=== PATIENT | male | born 1955 | race African-American/Black ===

== ENCOUNTER 2024-01-14 14:14 | Emergency (ER) | payer OTHER ==
[~2024-01-14] VITALS: Ht 177.8 cm; Wt 86.2 kg
[2024-01-14] MEDS ORDERED: DEXTROSE 50%-WATER 50 ML DISP.SYRIN ONE (14:46)
[2024-01-14] MEDS: IV NS 0.9% 1,000 ML BAG IV ONE (14:54)
[2024-01-14] MEDS: DEXTROSE 50%-WATER 50 ML DISP.SYRIN IVP ONE (14:54)
[2024-01-14 15:22] LABS: BASOPHILS % (AUTO) 0.5 % (0.0-2.0); EOSINOPHILS # (AUTO) 0.2 K/uL (0.0-0.7); EOSINOPHILS % (AUTO) 2.1 % (0.0-6.0); HEMATOCRIT 31 % (39-51); HEMOGLOBIN 9.9 g/dL (13.5-17.5); LYMPHOCYTES % (AUTO) 11.7 % (20.0-44.0); MEAN CORPUSCULAR HEMOGLOBIN 29 PG (26.0-33.0); MEAN CORPUSCULAR HGB CONC 32 g/dl (31.0-36.0); MEAN CORPUSCULAR VOLUME 88 fL (80-96); MONOCYTES # (AUTO) 0.8 K/uL (0.1-1.30); MONOCYTES % (AUTO) 9.8 % (2.0-12.0); NEUTROPHILS # (AUTO) 6.5 K/uL (1.8-8.9); NEUTROPHILS % (AUTO) 75.9 % (43.0-81.0); PLATELET COUNT (AUTO) 236 K/uL (150-450); RED BLOOD CELL COUNT(AUTO) 3.48 MIL/uL (4.5-6.0); RED CELL DISTRIBUTION WIDTH 14.4 % (11.5-15.0); WHITE BLOOD COUNT (AUTO) 8.5 K/uL (4.3-11.0)
[2024-01-14 15:29] LABS: CALCIUM, SERUM 8.7 mg/dL (8.5-10.1); POTASSIUM 3.9 mmol/L (3.5-5.1)
[2024-01-14 15:34] LABS: CREATININE 8.3 mg/dL (0.6-1.3)
[2024-01-14] MEDS ORDERED: DEXTROSE 50%-WATER 50 ML DISP.SYRIN IV PRN (16:30)
[2024-01-14] MEDS ORDERED: MAG HYDROX/AL HYDROX/SIMETH 30 ML UDC PO PRN (16:30)
[2024-01-14] MEDS ORDERED: INSULIN REGULAR, HUMAN 100 UNIT/ML 3 ML VIAL SQ PRN (16:30)
[2024-01-14] MEDS ORDERED: ACETAMINOPHEN 325 MG TABLET PO PRN (16:30)
[2024-01-14] MEDS ORDERED: Z GUARD REMEDY 4 OZ OINT TP PRN (16:30)
[2024-01-14] MEDS ORDERED: ONDANSETRON HCL/PF 4 MG/2 ML VIAL IVP PRN (16:30)
[2024-01-14] MEDS ORDERED: MAGNESIUM HYDROXIDE 30 ML UDC PO PRN (16:30)
[2024-01-14] MEDS ORDERED: BLOOD SUGAR DIAGNOSTIC 1 EACH STRIP IN SCH (17:30)
[2024-01-14 18:05] VITALS: BP 141/81; TEMP 98.9; O2SAT 99
== END 2024-01-14 18:05 | disposition home or self-care (01) ==
LOC: ER 14:20 → TELE1 16:29 → UNDOADMIN 16:29
DX: E16.2 Hypoglycemia, unspecified (principal); I12.0 Hypertensive chronic kidney disease with stage 5 chronic kidney disease or end stage renal disease; N18.6 End stage renal disease
CPT/HCPCS: 36415; 80048-TC; 82962-TC; 85025-TC; J1815

== ENCOUNTER 2024-04-06 11:53 | Inpatient (IN) | payer OTHER ==
[2024-04-06] VITALS (11 sets, daily range): BP systolic 118–153; BP diastolic 57–100; TEMP 98.4–98.9; O2SAT 94–100
[~2024-04-06] VITALS: Ht 175.3 cm; Wt 85.7 kg
[2024-04-06] MEDS ORDERED: SODIUM BICARBONATE SYR 50 MEQ/50 ML DISP.SYRIN ONE (12:12)
[2024-04-06] MEDS ORDERED: CALCIUM CHLORIDE 1,000 MG/10 ML DISP.SYRIN ONE (12:12)
[2024-04-06] MEDS: SODIUM BICARBONATE SYR 50 MEQ/50 ML DISP.SYRIN IV ONE (12:19)
[2024-04-06] MEDS: CALCIUM CHLORIDE 1,000 MG/10 ML DISP.SYRIN IV ONE (12:20)
[2024-04-06 12:52] LABS: CALCIUM, SERUM 7.8 mg/dL (8.5-10.1); CARBON DIOXIDE 13 mmol/L (21-32); CHLORIDE 100 mmol/L (98-107); GLUCOSE 155 mg/dL (74-106); POTASSIUM 5.2 mmol/L (3.5-5.1); SODIUM SERUM 138 mmol/L (136-145)
[2024-04-06 12:55] LABS: INR 1.21 (0.91-1.10); PARTIAL THROMBOPLASTIN TIME 28.7 SEC (24.3-34.3); PROTHROMBIN TIME 12.7 SECS (9.2-11.1)
[2024-04-06 12:59] LABS: CREATININE 15.6 mg/dL (0.6-1.3); UREA NITROGEN, BLOOD 106 mg/dL (7-18)
[2024-04-06 13:03] LABS: BASOPHILS % (AUTO) 0.4 % (0.0-2.0); EOSINOPHILS % (AUTO) 0.1 % (0.0-6.0); HEMATOCRIT 28 % (39-51); LYMPHOCYTES # (AUTO) 0.7 K/uL (0.8-4.8); LYMPHOCYTES % (AUTO) 8.8 % (20.0-44.0); MEAN CORPUSCULAR HEMOGLOBIN 28 PG (26.0-33.0); MEAN CORPUSCULAR HGB CONC 32 g/dl (31.0-36.0); MEAN CORPUSCULAR VOLUME 87 fL (80-96); MONOCYTES # (AUTO) 0.9 K/uL (0.1-1.30); MONOCYTES % (AUTO) 11.6 % (2.0-12.0); NEUTROPHILS % (AUTO) 79.1 % (43.0-81.0); PLATELET COUNT (AUTO) 266 K/uL (150-450); RED BLOOD CELL COUNT(AUTO) 3.27 MIL/uL (4.5-6.0); RED CELL DISTRIBUTION WIDTH 16.3 % (11.5-15.0); WHITE BLOOD COUNT (AUTO) 7.6 K/uL (4.3-11.0)
[2024-04-06 13:05] LABS: ALANINE AMINOTRANSFERASE 349 U/L (12-78); ALBUMIN 2.7 g/dL (3.4-5.0); ALKALINE PHOSPHATASE 122 U/L (46-116); ASPARTATE AMINOTRANSFERASE 534 U/L (15-37); BILIRUBIN,DIRECT 0.4 mg/dL (0.0-0.2); BILIRUBIN,TOTAL 0.9 mg/dL (0.2-1.0)
[2024-04-06 13:44] LABS: NT-PRO BNP > 25000 pg/mL (0-125)
[2024-04-06] MEDS ORDERED: FOLI0.4T6 PO (14:14)
[2024-04-06] MEDS ORDERED: EZET10TA15 PO (14:14)
[2024-04-06] MEDS ORDERED: SEVE800T28 PO (14:14)
[2024-04-06] MEDS ORDERED: LIDO35.4 TP (14:14)
[2024-04-06] MEDS ORDERED: SEMA0.25 SQ (14:14)
[2024-04-06] MEDS ORDERED: METO100T14 PO (14:14)
[2024-04-06] MEDS ORDERED: ASPI-1169 PO (14:14)
[2024-04-06] MEDS ORDERED: INSU100V7 SQ (14:14)
[2024-04-06] MEDS ORDERED: QUET300T2 PO (14:14)
[2024-04-06] MEDS ORDERED: ATOR80TA PO (14:14)
[2024-04-06] MEDS ORDERED: CARB30DR18 EACHEYE (14:14)
[2024-04-06] MEDS ORDERED: ZOLPIDEM TARTRATE 5 MG TABLET PO PRN ×2 (16:00→16:30)
[2024-04-06] MEDS ORDERED: ACETAMINOPHEN 325 MG TABLET PO PRN (16:00)
[2024-04-06] MEDS ORDERED: Z GUARD REMEDY 4 OZ OINT TP PRN ×2 (16:00→16:30)
[2024-04-06] MEDS ORDERED: ONDANSETRON HCL/PF 4 MG/2 ML VIAL IVP PRN (16:00)
[2024-04-06] MEDS ORDERED: METOPROLOL TARTRATE 25 MG TABLET PO SCH (16:00)
[2024-04-06] MEDS ORDERED: QUETIAPINE FUMARATE 100 MG TABLET PO SCH (17:00)
[2024-04-06] MEDS: SEVELAMER CARBONATE 800 MG TABLET PO SCH (17:05)
[2024-04-06] MEDS: QUETIAPINE FUMARATE 100 MG TABLET PO SCH (17:05)
[2024-04-06] MEDS ORDERED: SEVELAMER CARBONATE 800 MG TABLET PO SCH (18:00)
[2024-04-06] MEDS: ASPIRIN 81 MG TAB.CHEW PO ONE (20:45)
[2024-04-06] MEDS: METOPROLOL TARTRATE 25 MG TABLET PO SCH (21:15)
[2024-04-06] MEDS: ATORVASTATIN 40 MG TABLET PO SCH (21:16)
[2024-04-06] MEDS ORDERED: INSULIN GLARGINE, 100 UNIT/ML CARTRIDGE SQ SCH (22:00)
[2024-04-06] MEDS ORDERED: ATORVASTATIN 40 MG TABLET PO SCH (22:00)
[2024-04-06] MEDS: INSULIN GLARGINE, 100 UNIT/ML CARTRIDGE SQ SCH (22:36)
[2024-04-06] MEDS: ACETAMINOPHEN 325 MG TABLET PO PRN (23:28)
[2024-04-07] VITALS (24 sets, daily range): BP systolic 102–148; BP diastolic 48–89; TEMP 97.7–100.2; O2SAT 89–100
[2024-04-07] MEDS ORDERED: PANTOPRAZOLE 40 MG TABLET.DR PO SCH (07:30)
[2024-04-07] MEDS: EZETIMIBE 10 MG TABLET PO SCH (08:52)
[2024-04-07] MEDS: PANTOPRAZOLE 40 MG TABLET.DR PO SCH (08:52)
[2024-04-07] MEDS: FOLIC ACID 1 MG TABLET PO SCH (08:52)
[2024-04-07] MEDS: ASPIRIN 81 MG TAB.CHEW PO SCH (08:53)
[2024-04-07] MEDS: LIDOCAINE 5% OINT 35.44 GM TUBE TP SCH (08:53)
[2024-04-07] MEDS ORDERED: LIDOCAINE 5% OINT 35.44 GM TUBE TP SCH (09:00)
[2024-04-07] MEDS ORDERED: EZETIMIBE 10 MG TABLET PO SCH (09:00)
[2024-04-07] MEDS ORDERED: FOLIC ACID 1 MG TABLET PO SCH (09:00)
[2024-04-07] MEDS ORDERED: ASPIRIN 81 MG TAB.CHEW PO SCH (09:00)
[2024-04-07] MEDS: METOPROLOL TARTRATE 50 MG TABLET PO SCH (10:27)
[2024-04-07] MEDS: ATORVASTATIN 10 MG TABLET PO SCH (10:29)
[2024-04-07 14:03] LABS: POTASSIUM 3.8 mmol/L (3.5-5.1)
[2024-04-07 14:10] LABS: CREATININE 10.6 mg/dL (0.6-1.3)
[2024-04-07] MEDS ORDERED: INSULIN GLARGINE, 100 UNIT/ML CARTRIDGE SQ ONE (23:06)
[2024-04-08] VITALS: BP_SYST 111; BP_SYST 116; BP_DIAS 62; TEMP 98.1; O2SAT 97; O2SAT 99
[2024-04-08 04:00] VITALS: BP 117/61; TEMP 97.7; O2SAT 97
[2024-04-08 07:58] LABS: CHOLESTEROL 75 mg/dL (<200); HDL CHOLESTEROL 42 mg/dL (40-60); LDL 29 mg/dL (0-99); TRIGLYCERIDES 93 mg/dL (30-150)
[2024-04-08 08:00] VITALS: BP 117/62; TEMP 98.4
[2024-04-08 08:08] LABS: HEPATITIS B SURFACE AB Non Reactive (.)
[2024-04-08 12:00] VITALS: BP 117/51; TEMP 97.9; O2SAT 100
[2024-04-08 13:02] LABS: BASOPHILS # (AUTO) 0.1 K/uL (0.0-0.2); BASOPHILS % (AUTO) 0.9 % (0.0-2.0); EOSINOPHILS # (AUTO) 0.2 K/uL (0.0-0.7); EOSINOPHILS % (AUTO) 3.3 % (0.0-6.0); HEMATOCRIT 27 % (39-51); HEMOGLOBIN 8.6 g/dL (13.5-17.5); LYMPHOCYTES % (AUTO) 14.2 % (20.0-44.0); MEAN CORPUSCULAR HEMOGLOBIN 28 PG (26.0-33.0); MEAN CORPUSCULAR HGB CONC 32 g/dl (31.0-36.0); MEAN CORPUSCULAR VOLUME 85 fL (80-96); MONOCYTES # (AUTO) 1.2 K/uL (0.1-1.30); MONOCYTES % (AUTO) 16.5 % (2.0-12.0); NEUTROPHILS # (AUTO) 4.6 K/uL (1.8-8.9); NEUTROPHILS % (AUTO) 65.1 % (43.0-81.0); PLATELET COUNT (AUTO) 168 K/uL (150-450); RED BLOOD CELL COUNT(AUTO) 3.11 MIL/uL (4.5-6.0); RED CELL DISTRIBUTION WIDTH 16.4 % (11.5-15.0)
[2024-04-08 13:33] LABS: ALBUMIN 2.3 g/dL (3.4-5.0); BILIRUBIN,TOTAL 0.3 mg/dL (0.2-1.0); CALCIUM, SERUM 7.2 mg/dL (8.5-10.1); MAGNESIUM 2.1 mg/dL (1.8-2.4); PHOSPHORUS 6.7 mg/dL (2.5-4.9)
[2024-04-08 13:40] LABS: CREATININE 12.2 mg/dL (0.6-1.3)
[2024-04-08] MEDS ORDERED: CT SWABBABLE VALVE TRANS SET 1 EA INFUS.SET MC ONE (14:25)
[2024-04-08] MEDS ORDERED: IOHEXOL-350 100 ML VIAL IV ONE (14:25)
[2024-04-08] MEDS ORDERED: IV NS 0.9% 250 ML IV ONE (14:25)
[2024-04-08] MEDS ORDERED: NITROGLYCERIN 0.4 MG/TAB BOTTLE ONE (14:26)
[2024-04-08] MEDS ORDERED: METOPROLOL TARTRATE INJ 5 MG/5 ML AMPUL ONE (14:26)
[2024-04-08 16:00] VITALS: BP 141/69; TEMP 97.9; O2SAT 100
[2024-04-08] MEDS: ONDANSETRON HCL/PF 4 MG/2 ML VIAL IVP PRN (16:48)
[2024-04-08 20:00] VITALS: BP 130/87; TEMP 98.2
[2024-04-09] VITALS (7 sets, daily range): BP systolic 122–144; BP diastolic 60–86; TEMP 98.1–98.6; O2SAT 97–99
[2024-04-09 04:06] LABS: HEPATITIS B CORE AB, IgM Negative (Negative); HEPATITIS B CORE AB, TOTAL Negative (Negative); HEPATITIS B SURFACE AB Non Reactive (.)
[2024-04-09 07:25] LABS: BASOPHILS % (AUTO) 0.5 % (0.0-2.0); EOSINOPHILS # (AUTO) 0.2 K/uL (0.0-0.7); EOSINOPHILS % (AUTO) 2.9 % (0.0-6.0); HEMATOCRIT 25 % (39-51); HEMOGLOBIN 8.2 g/dL (13.5-17.5); LYMPHOCYTES % (AUTO) 14.1 % (20.0-44.0); MEAN CORPUSCULAR HEMOGLOBIN 27 PG (26.0-33.0); MEAN CORPUSCULAR HGB CONC 33 g/dl (31.0-36.0); MEAN CORPUSCULAR VOLUME 83 fL (80-96); MONOCYTES # (AUTO) 1.2 K/uL (0.1-1.30); MONOCYTES % (AUTO) 17.2 % (2.0-12.0); NEUTROPHILS # (AUTO) 4.4 K/uL (1.8-8.9); NEUTROPHILS % (AUTO) 65.3 % (43.0-81.0); PLATELET COUNT (AUTO) 170 K/uL (150-450); RED BLOOD CELL COUNT(AUTO) 3.03 MIL/uL (4.5-6.0); RED CELL DISTRIBUTION WIDTH 16.2 % (11.5-15.0); WHITE BLOOD COUNT (AUTO) 6.8 K/uL (4.3-11.0)
[2024-04-09 07:29] LABS: ALBUMIN 2.3 g/dL (3.4-5.0); BILIRUBIN,TOTAL 0.4 mg/dL (0.2-1.0); CALCIUM, SERUM 7.1 mg/dL (8.5-10.1); MAGNESIUM 2.1 mg/dL (1.8-2.4); PHOSPHORUS 6.7 mg/dL (2.5-4.9); POTASSIUM 4.1 mmol/L (3.5-5.1)
[2024-04-09 07:34] LABS: CREATININE 12.7 mg/dL (0.6-1.3)
[2024-04-10] VITALS (7 sets, daily range): BP systolic 127–146; BP diastolic 64–89; TEMP 97.2–99.1; O2SAT 96–97
[2024-04-11 04:18] VITALS: BP 132/76; TEMP 98.4; O2SAT 98
[2024-04-11 12:00] VITALS: BP 125/80; TEMP 98; O2SAT 98
[2024-04-11 20:00] VITALS: BP 139/102; TEMP 98.6; O2SAT 97
[2024-04-12 04:00] VITALS: BP 142/111; TEMP 98.5; O2SAT 97
[2024-04-12 09:30] VITALS: BP 143/91
== END 2024-04-12 18:02 | disposition home or self-care (01) | DRG 640 ==
LOC: ER 11:55 → ICU 16:26 → TELE1 04-07 23:37 → MEDSG1 04-10 08:26
PROC: 5A1D70Z Performance of Urinary Filtration, Intermittent, Less than 6 Hours Per Day (ICD-10-PCS; principal; 2024-04-06)
DX: E87.70 Fluid overload, unspecified (principal); I21.A1 Myocardial infarction type 2; N18.6 End stage renal disease; I12.0 Hypertensive chronic kidney disease with stage 5 chronic kidney disease or end stage renal disease; E87.20 Acidosis, unspecified; E11.22 Type 2 diabetes mellitus with diabetic chronic kidney disease; D63.8 Anemia in other chronic diseases classified elsewhere; E78.5 Hyperlipidemia, unspecified; E87.5 Hyperkalemia; E83.89 Other disorders of mineral metabolism; Z79.4 Long term (current) use of insulin; Z99.2 Dependence on renal dialysis; R74.01 Elevation of levels of liver transaminase levels; Z91.158 Patient's noncompliance with renal dialysis for other reason
CPT/HCPCS: 36415; 71045-TC; 76705-TC; 80048-TC; 80053-TC; 80061-TC; 80076-TC; 82962-TC; 83735-TC; 83880; 84100-TC; 84484-TC; 85025-TC; 85730-TC; 86704; 86705; 86706; 86803; 87081-TC; 87340; 90935-TC; 93307-TC; A4217; A4362; G0378; J1815; J2405; J3490; J7030; J7050; Q9967

== ENCOUNTER 2024-04-19 13:59 | Inpatient (IN) | payer OTHER ==
[~2024-04-19] VITALS: Ht 175.3 cm; Wt 83.0 kg
[~2024-04-19 13:59] MED LIST: ASPI-1169 PO; ATOR80TA PO; CARB30DR18 EACHEYE; EZET10TA15 PO; FOLI0.4T6 PO; INSU100V7 SQ; LIDO35.4 TP; METO100T14 PO; QUET300T2 PO; SEMA0.25 SQ; SEVE800T28 PO
[2024-04-19] MEDS ORDERED: DEXTROSE 50%-WATER 50 ML DISP.SYRIN ONE (14:44)
[2024-04-19] MEDS: DEXTROSE 50%-WATER 50 ML DISP.SYRIN IV ONE (14:50)
[2024-04-19 15:26] LABS: HEMOGLOBIN 9.8 g/dL (13.5-17.5); MONOCYTES # (AUTO) 0.7 K/uL (0.1-1.30)
[2024-04-19 15:27] LABS: ALBUMIN 2.5 g/dL (3.4-5.0); BILIRUBIN,DIRECT 0.4 mg/dL (0.0-0.2); BILIRUBIN,TOTAL 0.6 mg/dL (0.2-1.0); CALCIUM, SERUM 7.1 mg/dL (8.5-10.1); POTASSIUM 4.5 mmol/L (3.5-5.1); TOTAL PROTEIN, SERUM 7.1 g/dL (6.4-8.2)
[2024-04-19 15:33] LABS: CREATININE 12.5 mg/dL (0.6-1.3); INR 1.06 (0.91-1.10); PROTHROMBIN TIME 11.2 SECS (9.2-11.1)
[2024-04-19 15:37] LABS: BASOPHILS % (AUTO) 0.1 % (0.0-2.0); EOSINOPHILS % (AUTO) 0.1 % (0.0-6.0); HEMATOCRIT 30 % (39-51); LYMPHOCYTES # (AUTO) 0.7 K/uL (0.8-4.8); LYMPHOCYTES % (AUTO) 8.1 % (20.0-44.0); MEAN CORPUSCULAR HEMOGLOBIN 27 PG (26.0-33.0); MEAN CORPUSCULAR HGB CONC 33 g/dl (31.0-36.0); MEAN CORPUSCULAR VOLUME 82 fL (80-96); MONOCYTES % (AUTO) 8.5 % (2.0-12.0); NEUTROPHILS # (AUTO) 6.7 K/uL (1.8-8.9); NEUTROPHILS % (AUTO) 83.2 % (43.0-81.0); PLATELET COUNT (AUTO) 246 K/uL (150-450); RED BLOOD CELL COUNT(AUTO) 3.68 MIL/uL (4.5-6.0); RED CELL DISTRIBUTION WIDTH 16.7 % (11.5-15.0); WHITE BLOOD COUNT (AUTO) 8.1 K/uL (4.3-11.0)
[2024-04-19] MEDS ORDERED: ACETAMINOPHEN 325 MG TABLET PO PRN (18:30)
[2024-04-19] MEDS ORDERED: POLYVINYL ALCOHOL 15 ML BOTTLE EACHEYE PRN (18:30)
[2024-04-19] MEDS ORDERED: ONDANSETRON HCL/PF 4 MG/2 ML VIAL IVP PRN (18:30)
[2024-04-20] VITALS: BP 131/63; TEMP 98.6; O2SAT 100
[2024-04-20] MEDS: METOPROLOL TARTRATE 50 MG TABLET PO SCH (00:06)
[2024-04-20] MEDS: SEVELAMER CARBONATE 800 MG TABLET PO SCH (00:06)
[2024-04-20] MEDS: ATORVASTATIN 40 MG TABLET PO SCH (00:07)
[2024-04-20] MEDS: QUETIAPINE FUMARATE 100 MG TABLET PO SCH (00:07)
[2024-04-20] MEDS: HEPARIN SODIUM, PORCINE 5000 UNITS/1 ML VIAL SQ SCH (00:08)
[2024-04-20 04:00] VITALS: BP 129/62; TEMP 98.4; O2SAT 100
[2024-04-20 07:20] LABS: BASOPHILS % (AUTO) 0.4 % (0.0-2.0); EOSINOPHILS # (AUTO) 0.1 K/uL (0.0-0.7); EOSINOPHILS % (AUTO) 0.9 % (0.0-6.0); HEMATOCRIT 27 % (39-51); HEMOGLOBIN 8.8 g/dL (13.5-17.5); LYMPHOCYTES # (AUTO) 1.7 K/uL (0.8-4.8); LYMPHOCYTES % (AUTO) 24.7 % (20.0-44.0); MEAN CORPUSCULAR HEMOGLOBIN 27 PG (26.0-33.0); MEAN CORPUSCULAR HGB CONC 33 g/dl (31.0-36.0); MEAN CORPUSCULAR VOLUME 80 fL (80-96); MONOCYTES # (AUTO) 0.7 K/uL (0.1-1.30); MONOCYTES % (AUTO) 10.8 % (2.0-12.0); NEUTROPHILS # (AUTO) 4.3 K/uL (1.8-8.9); NEUTROPHILS % (AUTO) 63.2 % (43.0-81.0); PLATELET COUNT (AUTO) 256 K/uL (150-450); RED BLOOD CELL COUNT(AUTO) 3.33 MIL/uL (4.5-6.0); RED CELL DISTRIBUTION WIDTH 16.4 % (11.5-15.0); WHITE BLOOD COUNT (AUTO) 6.9 K/uL (4.3-11.0)
[2024-04-20 07:32] LABS: CALCIUM, SERUM 7.4 mg/dL (8.5-10.1); CREATININE 7.3 mg/dL (0.6-1.3); PHOSPHORUS 4.1 mg/dL (2.5-4.9); POTASSIUM 3.4 mmol/L (3.5-5.1)
[2024-04-20 08:00] VITALS: BP 126/98; TEMP 98.2; O2SAT 97
[2024-04-20] MEDS: FOLIC ACID 1 MG TABLET PO SCH (09:09)
[2024-04-20] MEDS: EZETIMIBE 10 MG TABLET PO SCH (09:10)
[2024-04-20] MEDS: ASPIRIN 81 MG TAB.CHEW PO SCH (09:10)
[2024-04-20 16:00] VITALS: BP 123/70; TEMP 98.4; O2SAT 98
[2024-04-20 20:00] VITALS: BP 126/77; TEMP 98.6; O2SAT 100
[2024-04-21] VITALS: BP 131/72; TEMP 98.8; O2SAT 100
[2024-04-21 04:00] VITALS: BP 124/63; TEMP 97.8; O2SAT 96
[2024-04-21 07:30] VITALS: BP_SYST 115; BP_SYST 141; BP_DIAS 70; BP_DIAS 75; TEMP 97.7; TEMP 99.5; O2SAT 100; O2SAT 98
[2024-04-21 16:00] VITALS: BP 129/61; TEMP 98.1; O2SAT 100
[2024-04-21 20:00] VITALS: BP 117/59; TEMP 98.6; O2SAT 99
[2024-04-22] VITALS: BP_SYST 118; BP_SYST 124; BP_DIAS 62; BP_DIAS 82; TEMP 98.1; O2SAT 99
[2024-04-22 04:00] VITALS: BP 124/82; TEMP 98.1; O2SAT 99
[2024-04-22 08:00] VITALS: BP 111/65; TEMP 98.4; O2SAT 99
[2024-04-22 12:00] VITALS: BP 123/60; TEMP 98.2; O2SAT 98
[2024-04-22 16:46] VITALS: BP 118/72; TEMP 97.9; O2SAT 98
== END 2024-04-22 18:23 | disposition home or self-care (01) | DRG 640 ==
LOC: ER 14:21 → TELE 20:51
PROVIDERS: ADMIT Nurse Practitioner Acute Care; ATTEND Nurse Practitioner Acute Care
PROC: 5A1D70Z Performance of Urinary Filtration, Intermittent, Less than 6 Hours Per Day (ICD-10-PCS; principal; 2024-04-20)
DX: E87.79 Other fluid overload (principal); N18.6 End stage renal disease; I12.0 Hypertensive chronic kidney disease with stage 5 chronic kidney disease or end stage renal disease; E44.0 Moderate protein-calorie malnutrition; D68.69 Other thrombophilia; E87.5 Hyperkalemia; Z99.2 Dependence on renal dialysis; E66.9 Obesity, unspecified; E78.5 Hyperlipidemia, unspecified; E11.22 Type 2 diabetes mellitus with diabetic chronic kidney disease; E11.649 Type 2 diabetes mellitus with hypoglycemia without coma; E88.09 Other disorders of plasma-protein metabolism, not elsewhere classified; Z20.822 Contact with and (suspected) exposure to COVID-19; D63.8 Anemia in other chronic diseases classified elsewhere; R74.01 Elevation of levels of liver transaminase levels; Z68.27 Body mass index [BMI] 27.0-27.9, adult; Z79.4 Long term (current) use of insulin
CPT/HCPCS: 36415; 71045-TC; 80048-TC; 80076-TC; 82962-TC; 83735-TC; 84100-TC; 85025-TC; 85730-TC; 90935-TC; G0378; J1644; J7030

== ENCOUNTER 2024-06-28 18:42 | Emergency (ER) | payer OTHER ==
[~2024-06-28] VITALS: Ht 175.3 cm; Wt 85.7 kg
[2024-06-28 19:22] LABS: BASOPHILS # (AUTO) 0.1 K/uL (0.0-0.2); BASOPHILS % (AUTO) 0.8 % (0.0-2.0); EOSINOPHILS % (AUTO) 0.6 % (0.0-6.0); HEMATOCRIT 30 % (39-51); HEMOGLOBIN 9.9 g/dL (13.5-17.5); LYMPHOCYTES # (AUTO) 1.6 K/uL (0.8-4.8); LYMPHOCYTES % (AUTO) 21.2 % (20.0-44.0); MEAN CORPUSCULAR HEMOGLOBIN 28 PG (26.0-33.0); MEAN CORPUSCULAR HGB CONC 33 g/dl (31.0-36.0); MEAN CORPUSCULAR VOLUME 86 fL (80-96); MONOCYTES # (AUTO) 0.9 K/uL (0.1-1.30); MONOCYTES % (AUTO) 12.4 % (2.0-12.0); PLATELET COUNT (AUTO) 216 K/uL (150-450); RED BLOOD CELL COUNT(AUTO) 3.55 MIL/uL (4.5-6.0); RED CELL DISTRIBUTION WIDTH 16.5 % (11.5-15.0); WHITE BLOOD COUNT (AUTO) 7.7 K/uL (4.3-11.0)
[2024-06-28 19:34] LABS: CALCIUM, SERUM 8.6 mg/dL (8.5-10.1); CARBON DIOXIDE 27 mmol/L (21-32); CHLORIDE 96 mmol/L (98-107); CREATININE 3.7 mg/dL (0.6-1.3); GLUCOSE 205 mg/dL (74-106); SODIUM SERUM 136 mmol/L (136-145); UREA NITROGEN, BLOOD 15 mg/dL (7-18)
[2024-06-28 19:47] LABS: POTASSIUM 2.8 mmol/L (3.5-5.1)
[2024-06-29 01:52] VITALS: BP 165/80; TEMP 98.6; O2SAT 96
== END 2024-06-29 01:52 | disposition home or self-care (01) ==
LOC: ER 18:58
DX: R53.1 Weakness (principal); D63.1 Anemia in chronic kidney disease; I12.0 Hypertensive chronic kidney disease with stage 5 chronic kidney disease or end stage renal disease; E11.22 Type 2 diabetes mellitus with diabetic chronic kidney disease; N18.6 End stage renal disease; R06.01 Orthopnea; E78.5 Hyperlipidemia, unspecified; Z79.82 Long term (current) use of aspirin; Z79.899 Other long term (current) drug therapy; Z99.2 Dependence on renal dialysis
CPT/HCPCS: 36415; 71045-TC; 80048-TC; 83880; 84484-TC; 85025-TC